=== PATIENT | female | born 1985 | race Caucasian/White ===

== ENCOUNTER → 2020-04-13 13:35 | Outpatient (CLI) | payer MEDICAID, SELFPAY ==
--- NOTE | 2020-04-13 13:35 | US_ITS ---
PROCEDURE: US OB TRANSVAGINAL CLINICAL INDICATION: for dates Early Ob ultrasound for dates COMPARISON: PTV US PELVIS-TRANSVAGINAL ONLY from 11/02/2015 FINDINGS: An intrauterine gestational sac is present with a pole with a crown-rump length of 3.12cm correlating to gestational age of 10weeks. heart tones are present with an FHR of 182bpm. Yolk sac is noted. There is an unusual fluid collection along the dorsal aspect of the spine and base of the neck of the fetus. This measures approximately 24 mm in length and 3 mm in thickness.. The linear area of echogenicity associated with this appears separate from the ununited amnion and chorion. Differential diagnosis would include cystic hygroma or encephalocele/meningocele. IMPRESSION: Live IUP at 10 weeks 0 days. An unusual fluid collection is present along the dorsal aspect of the fetus spine and base of neck. SUGGEST IMMEDIATE APPLICATION ARCHITECT ULTRASOUND EVALUATION. Estimated due date by Ultrasound is 11/09/2020 Dictated by: Sánchez Barnes MD 04/13/2020 16:07 Electronically signed by Sánchez Barnes MD in [place] 04/13/2020 16:07
== END ==
PROVIDERS: PCP Physician Assistant; Visit Provider Nurse Practitioner Obstetrics & Gynecology
DX: Z34.90 Encounter for supervision of normal pregnancy, unspecified, unspecified trimester (principal)
CPT/HCPCS: 76817

== ENCOUNTER 2020-06-26 12:03 | Outpatient (CLI) | payer MEDICAID, SELFPAY ==
[2020-06-26 12:11] VITALS: BP 118/60; PULSE 89; RESP 20; TEMP 36.7; O2SAT 100; BMI 24.3
[2020-06-26 12:51] LABS: Microscopic, Urine URINE MICROSCOPIC (MICROSCOPIC)
[2020-06-26 12:53] LABS: Appearance,Urine CLEAR (Clear); Bilirubin,Urine Negative (Negative); Blood, Urine 3+ (Negative); Color,Urine YELLOW (Yellow); Glucose,Urine (UA) Negative (Negative); Ketones,Urine Negative (Negative); Leukocyte Esterase,Urine Negative (Negative); Nitrate,Urine Negative (Negative); PH,Urine 6.5 (5.0-8.5); Protein,Urine Negative (Negative); Specific Gravity, Urine 1.015 (1.005-1.030); Urobilinogen,Urine 0.2 EU/dl (0.2)
[2020-06-26 13:06] LABS: Benzodiazepines Screen,Urine Negative ng/ml (<200)
[2020-06-26 13:07] LABS: Amphetamine/Metha Screen,Urine Negative ng/ml (<1000)
[2020-06-26 13:08] LABS: Barbiturates Screen,Urine Negative ng/ml (<200); Cannabinoid Screen,Urine Negative ng/ml (<50)
[2020-06-26 13:09] LABS: Cocaine Screen,Urine Negative ng/ml (<300); Methadone Screen,Urine Negative ng/ml (<300)
[2020-06-26 13:10] LABS: Opiate Screen,Urine Negative ng/ml (<300)
[2020-06-26 13:11] LABS: Phencyclidine Screen,Urine Negative ng/ml (<25)
[2020-06-26 13:33] LABS: Bacteria,Urine Trace /lpf; Mucus,Urine 1+ /lpf; WBC,Urine Occasional #/hpf (0-3)
[2020-06-26 13:44] LABS: Basophils % 0.2 % (0.1-2.0); Eosinophils # 0.1 K/mm3 (0.0-0.4); Eosinophils % 0.9 % (0.1-12.0); Hematocrit 34.2 % (37.0-47.0); Hemoglobin 11.8 g/dL (12.2-16.2); Lymphocytes # 1.4 K/mm3 (0.7-4.5); Lymphocytes % 13.7 % (10-50); Mean Corpuscular HGB Conc 34.6 g/dL (31.8-35.4); Mean Corpuscular Hemoglobin 31.7 pg (27.0-31.2); Mean Corpuscular Volume 91.7 fl (81-99); Mean Platelet Volume 7.8 fl (7.4-10.4); Monocytes # 0.4 K/mm3 (0.1-1.0); Monocytes % 3.6 % (1.7-9.3); Neutrophils # 8.2 K/mm3 (1.8-7.8); Neutrophils % 81.6 % (37.0-80.0); Platelet Count 264 K/mm3 (142-424); Red Blood Count 3.74 M/mm3 (4.20-5.40); Red Cell Distribution Width 14.3 % (11.5-17.5); White Blood Count 10.1 K/mm3 (4.8-10.8)
[2020-06-28 18:00] LABS: HIV Screen 4th Generation wRfx Non Reactive (Non Reactive)
[2020-06-29 09:07] LABS: Hepatitis B Surface Antigen Negative (Negative)
[2020-06-29 13:30] LABS: Rapid Plasma Reagin Ab Titer Non Reactive (NonRea<1:1)
== END 2020-06-26 13:37 | disposition home or self-care (01) ==
LOC: OBOUT 12:05 → OB 12:11
PROVIDERS: PCP Physician Assistant; Visit Provider Nurse Practitioner Obstetrics & Gynecology
DX: Z34.90 Encounter for supervision of normal pregnancy, unspecified, unspecified trimester (principal)
CPT/HCPCS: 59025; 80305; 81001; 85025; 86592; 86762; 86850; 87340

== ENCOUNTER → 2020-10-26 14:28 | Outpatient (CLI) | payer MEDICAID, SELFPAY | PROVIDERS: Visit Provider Nurse Practitioner Obstetrics & Gynecology | DX: Z34.90 Encounter for supervision of normal pregnancy, unspecified, unspecified trimester (principal); Z3A.36 36 weeks gestation of pregnancy | CPT/HCPCS: 86403 ==

== ENCOUNTER → 2020-11-02 13:22 | Outpatient (CLI) | payer MEDICAID, SELFPAY ==
[2020-11-02 13:54] LABS: Basophils % 0.3 % (0.1-2.0); Eosinophils # 0.1 K/mm3 (0.0-0.4); Eosinophils % 0.7 % (0.1-12.0); Hematocrit 37.6 % (37.0-47.0); Lymphocytes # 3.2 K/mm3 (0.7-4.5); Lymphocytes % 34.2 % (10-50); Mean Corpuscular Hemoglobin 28.8 pg (27.0-31.2); Mean Corpuscular Volume 90.1 fl (81-99); Mean Platelet Volume 7.4 fl (7.4-10.4); Monocytes # 0.4 K/mm3 (0.1-1.0); Monocytes % 4.6 % (1.7-9.3); Neutrophils # 5.7 K/mm3 (1.8-7.8); Neutrophils % 60.3 % (37.0-80.0); Platelet Count 362 K/mm3 (142-424); Red Blood Count 4.18 M/mm3 (4.20-5.40); Red Cell Distribution Width 13.7 % (11.5-17.5); White Blood Count 9.4 K/mm3 (4.8-10.8)
[2020-11-04 08:48] LABS: HIV Screen 4th Generation wRfx Non Reactive (Non Reactive)
[2020-11-04 13:47] LABS: Hepatitis B Surface Antigen Negative (Negative); Hepatitis C Antibody >11.0 s/co ratio (0.0-0.9); Rapid Plasma Reagin Ab Titer Non Reactive (NonRea<1:1); Rubella Antibodies, IgG 3.87 index (Immune >0.99)
== END ==
PROVIDERS: Visit Provider Nurse Practitioner Obstetrics & Gynecology
DX: Z34.90 Encounter for supervision of normal pregnancy, unspecified, unspecified trimester (principal)
CPT/HCPCS: 36415; 85025; 86592; 86703; 86762; 86850; 87340; 87380; G0432

== ENCOUNTER 2020-11-03 05:21 | Inpatient (IN) | payer MEDICAID, SELFPAY ==
[2020-11-03 05:32] VITALS: BMI 24.1
[2020-11-03 06:16] VITALS: BP 130/91; PULSE 72; RESP 17; TEMP 36.6; O2SAT 98; BMI 24.1
[2020-11-03 06:25] LABS: Microscopic, Urine URINE MICROSCOPIC (MICROSCOPIC)
[2020-11-03 06:37] LABS: Basophils % 0.4 % (0.1-2.0); Eosinophils # 0.1 K/mm3 (0.0-0.4); Eosinophils % 0.7 % (0.1-12.0); Lymphocytes # 3.4 K/mm3 (0.7-4.5); Lymphocytes % 33.1 % (10-50); Mean Corpuscular HGB Conc 31.4 g/dL (31.8-35.4); Mean Corpuscular Volume 89.2 fl (81-99); Mean Platelet Volume 7.2 fl (7.4-10.4); Monocytes # 0.5 K/mm3 (0.1-1.0); Monocytes % 4.9 % (1.7-9.3); Neutrophils # 6.2 K/mm3 (1.8-7.8); Platelet Count 323 K/mm3 (142-424); Red Blood Count 3.81 M/mm3 (4.20-5.40); Red Cell Distribution Width 13.2 % (11.5-17.5); White Blood Count 10.2 K/mm3 (4.8-10.8)
[2020-11-03 06:59] LABS: Hemoglobin 10.7 g/dL (12.2-16.2)
[2020-11-03 07:06] LABS: Appearance,Urine CLEAR (Clear); Blood, Urine Negative (Negative); Color,Urine YELLOW (Yellow); Glucose,Urine (UA) Negative (Negative); Ketones,Urine Negative (Negative); Leukocyte Esterase,Urine Negative (Negative); Nitrate,Urine Negative (Negative); Protein,Urine 1+ (Negative); Specific Gravity, Urine >= 1.030 (1.005-1.030)
[2020-11-03 07:21] LABS: Bilirubin,Urine 1+ (Negative)
[2020-11-03 07:23] LABS: Coronavirus 19 IgG Antibody Negative (Negative); Coronavirus 19 IgM Antibody Negative (Negative)
[2020-11-03 07:28] LABS: RBC,Urine Occasional #/hpf (0-3)
[2020-11-03 08:20] LABS: Amphetamine/Metha Screen,Urine Negative ng/ml (<1000)
[2020-11-03 08:21] LABS: Barbiturates Screen,Urine Negative ng/ml (<200); Benzodiazepines Screen,Urine Negative ng/ml (<200)
[2020-11-03 08:22] LABS: Cannabinoid Screen,Urine Negative ng/ml (<50)
[2020-11-03 08:23] LABS: Cocaine Screen,Urine Negative ng/ml (<300); Methadone Screen,Urine Negative ng/ml (<300)
[2020-11-03 08:24] LABS: Opiate Screen,Urine Negative ng/ml (<300)
[2020-11-03 08:25] LABS: Phencyclidine Screen,Urine Negative ng/ml (<25)
--- NOTE | 2020-11-03 08:29 | HMH.LABNOT ---
Labor Note - Subjective: Date: 11/03/20 Time: 08:29 regular contraction - Objective: NST:: Reactive Contractions:: every 2-3 minutes Cervical Dilation:: 2-3 Effacement:: 50% Station: -1 Membranes: artificially ruptured Comment:: Clear fluid - Fetus: Monitoring?: Yes monitoring type:: External - Assessment: Labor progressing?: Yes Cephalopelvic disproportion?: No Patient Problems: All Active Problems (Acute) URI (upper respiratory infection) (Acute) Anxiety (Chronic) Trigeminal neuralgia of left side of face (Chronic) Numerous moles (Acute) Toenail fungus (Acute) Lesion of soft tissue of lower leg and ankle (Acute) Lesion of skin of scalp (Acute) - Plan: Anesthesia for epidural?: No Continue to labor down?: Yes Plan for ?: No Continue to monitor?: Yes Start pushing?: No Comment:: I ruptured membranes and there was clear fluid. I attempted to put a clip but the angle was difficult so I did not get a clip on. Nonstress is however reactive.
[2020-11-03 08:30] VITALS: BP 136/81; PULSE 62; RESP 18; TEMP 36.8; O2SAT 100
--- NOTE | 2020-11-03 08:36 | HMH.OBAPHP ---
OB - H&P: HPI Antepartum - History of Present Illness Chief complaint: Pressure and contractions History of present illness: She is a 35-year-old 3 para 1 aborta 1 who is 39 weeks gestational age. She has been feeling some contractions and pressure and as result of that we have elected to induce her labor at term. She also takes Subutex. - History of Present Criteria for establishing EDC:: LMP confirmed by 1st trimester US care: good care Ultrasounds: normal 1st trimester US, normal mid trimester US Obstetrical complications: none Medical complications: none [facility] History I have reviewed the patient's past medical history: Yes Medical History: Reports:: Anxiety, Depression Denies:: Cancer, Diabetes Mellitus Type 1, Diabetes Mellitus Type 2, MRSA *Have you ever received a pneumonia vaccine?: No *Have you received a flu vaccine this season?: No Other Surgeries: Yes: Appendectomy, Cholecystectomy, Diagnostic Lap. No: Amputation: No Fractures: Yes - *Social History Smoking Status: Former smoker Tobacco Type: cigarettes # Packs/Day (cigarettes): 1 Alcohol Intake: never Alcohol Intake Frequency:: a few times a month Substance Use Type: former substance user, opiates, painkillers, IV drugs *Occupational Status:: unemployed Housing: house Household Members: spouse *Travel in the last 8 weeks: None - Psychiatric History Pschychiatric History:: Reports:: Anxiety, Depression Family Hx:: Diabetes, Hypertension Para: 1 Review of Systems - Review of Systems Review of systems:: pertinent systems reviewed and negative unless documented below Meds Home Medications Medication Instructions Recorded Confirmed Type buprenorphine 8 mg-naloxone 2 mg 1.5 tab SUBLINGUAL ONCE tab 04/05/20 11/03/20 History sublingual tablet promethazine 12.5 mg tablet 12.5 mg PO QID PRN #30 tab 05/03/20 11/03/20 Rx Ferrous Sulfate 325 mg PO DAILY 11/03/20 11/03/20 History Vit68/Iron/FA No6/Dha 1 cap PO DAILY 11/03/20 11/03/20 History [Prenate Enhance] Allergies Allergy/AdvReac Type Severity Reaction Status Date / Time suture Allergy Severe SWELLING Verified 11/03/20 08:08 OB - H&P: Exam - Physical Exam Vital signs: Temp Pulse Resp BP Pulse Ox 97.8 F 72 17 130/91 H 98 11/03/20 06:16 11/03/20 06:16 11/03/20 06:16 11/03/20 06:16 11/03/20 06:16 - Constitutional no acute distress - Routine HEENT Exam Head: Present: normocephalic Eye: Present: EOMI, PERRL ENT: Present: mucous membranes moist - Routine Neck Exam Present: supple, full ROM - Routine Respiratory Exam Absent: accessory muscle use (good air entry bilaterally), respiratory distress, wheezes, crackles - Routine Cardiovascular Exam Present: RRR. Absent: murmur - Routine Abdominal Exam Present: soft, normoactive bowel sounds. Absent: tenderness, distended, guarding - Routine Rectal Exam Patient deferred: visual exam, digital exam - Routine Exam Patient deferred: external exam, groin exam, perineal exam - Routine Extremities Exam Present: full ROM. Absent: cyanosis, edema - Routine Skin Exam Present: intact. Absent: cyanosis - Routine Neurological Exam Present: alert, oriented X3 - Routine Psychiatric Exam Present: normal affect OB - Results - Labs Labs: Short CBC 11/03/20 Range/Units 06:05 WBC 10.2 (4.8-10.8) K/mm3 Hgb 10.7 L D (12.2-16.2) g/dL Hct 34.0 L (37.0-47.0) % Plt Count 323 (142-424) K/mm3 Urine 11/03/20 Range/Units 06:05 Urine Color Yellow (Yellow) Urine Appearance Clear (Clear) Urine pH 6.0 (5.0-8.5) Ur Specific [place] >= 1.030 (1.005-1.030) Urine Protein 1+ (Negative) Urine Glucose (UA) Negative (Negative) OB - A/P Antepartum (1) Term delivered Status: Acute (2) complicated by subutex maintenance, antepartum Status: Acute - Additional Plan Planning to felicinao
--- NOTE | 2020-11-03 10:49 | HMH.LABNOT ---
Labor Note - Subjective: Date: 11/03/20 Time: 10:49 regular contraction - Objective: NST:: Reactive Contractions:: every 2-3 minutes Cervical Dilation:: 3-4 Effacement:: 75% Station: -1 Membranes: artificially ruptured - Fetus: Monitoring?: Yes monitoring type:: Internal Comment:: I inserted a clip and IPC - Assessment: Labor progressing?: Yes Cephalopelvic disproportion?: No Patient Problems: All Active Problems Term delivered (Acute) complicated by subutex maintenance, antepartum (Acute) (Acute) URI (upper respiratory infection) (Acute) Anxiety (Chronic) Trigeminal neuralgia of left side of face (Chronic) Numerous moles (Acute) Toenail fungus (Acute) Lesion of soft tissue of lower leg and ankle (Acute) Lesion of skin of scalp (Acute) - Plan: Anesthesia for epidural?: Yes Continue to labor down?: Yes Plan for ?: No Continue to monitor?: Yes Start pushing?: No Comment:: She is starting to progress and having regular periods. She has an epidural and she is comfortable.
[2020-11-03 12:03] VITALS: BP 130/77; PULSE 65; RESP 18; TEMP 36.7; O2SAT 100
--- NOTE | 2020-11-03 13:54 | P.PN_ITS ---
[facility] Anesthesia Checklist - Patient Identification Patient Identification: Arm Band - Structural Data Admitted From: Home Planned Operative Procedure/s: Labor epidural Consent for Planned Operative Procedure(s) Verified: Yes Verified Documents: Surgical Consent, History and Physical - NPO Status Verified Time NPO: 00:00 - Additional verifications Anesthesia Reactions: No - Airway Assessment C-Spine Mobility Assessed: Yes TMJ Mobility Assessed: Yes Dentition: Good Dentition - Neurological Assessment Level of Consciousness: Awake, Alert - Anesthesia Plan Anesthesia Risk discussed: Yes Anesthesia Plan: Verified ASA Class: II Anesthesia Type: Epidural [facility] History I have reviewed the patient's past medical history: Yes Medical History: Reports:: Anxiety, Depression Denies:: Cancer, Diabetes Mellitus Type 1, Diabetes Mellitus Type 2, MRSA *Have you ever received a pneumonia vaccine?: No *Have you received a flu vaccine this season?: No Anesthesia experience/problems:: nac Other Surgeries: Yes: Appendectomy, Cholecystectomy, Diagnostic Lap. No: C- section Amputation: No Fractures: Yes - *Social History Smoking Status: Former smoker Tobacco Type: cigarettes # Packs/Day (cigarettes): 1 Alcohol Intake: never Alcohol Intake Frequency:: a few times a month Substance Use Type: former substance user, opiates, painkillers, IV drugs *Occupational Status:: unemployed Housing: house Household Members: spouse *Travel in the last 8 weeks: None - Psychiatric History Pschychiatric History:: Reports:: Anxiety, Depression Family Hx:: Diabetes, Hypertension Para: 1
--- NOTE | 2020-11-03 14:10 | HMH.LABNOT ---
Labor Note - Subjective: Date: 11/03/20 Time: 13:40 - Objective: NST:: Reactive Contractions:: every 2-3 minutes Cervical Dilation:: 5-6 Effacement:: 90% Station: 0 Membranes: artificially ruptured - Fetus: Monitoring?: Yes monitoring type:: Internal - Assessment: Labor progressing?: Yes Cephalopelvic disproportion?: No Patient Problems: All Active Problems Term delivered (Acute) complicated by subutex maintenance, antepartum (Acute) (Acute) URI (upper respiratory infection) (Acute) Anxiety (Chronic) Trigeminal neuralgia of left side of face (Chronic) Numerous moles (Acute) Toenail fungus (Acute) Lesion of soft tissue of lower leg and ankle (Acute) Lesion of skin of scalp (Acute) - Plan: Anesthesia for epidural?: Yes Continue to labor down?: Yes Plan for ?: No Continue to monitor?: Yes Start pushing?: No Comment:: She is doing well and the cervix is now 5 6 cm. We will plan for a vaginal delivery.
[2020-11-03 15:13] LABS: Cord Blood PH 7.41 (7.35-7.45)
--- NOTE | 2020-11-03 15:42 | HMH.DN ---
- Delivery Note Delivery Date:: 11/03/20 Delivery Time:: 15:02 Anesthesia Type: Epidural Was labor medically induced?: Yes Induction method: per pitocin protocol Gestational age (weeks): 39 delivered prior to 39 weeks?: No Gender: Male at 1 minute: 9 at 5 minutes: 9 Delivery Procedure:: She was started on IV oxytocin and had her membranes ruptured. Under labor epidural she progressed to full dilation and delivered spontaneously a liveborn male child at 3:02 PM in the afternoon of November 03, 2020. On deliver the head it was noted that there was a loose nuchal cord which was easily reduced. This was followed by the anterior shoulder and the rest of the 's body atraumatically. We allowed the cord to continue to pulse for approximately 1 minute. The baby was vigorous. The nasopharynx and oropharynx were bulb suction. We then doubly clamped the cord and cut the cord. The baby was then placed on the mother's abdomen for further care. The nurses assigned Apgars of 9 at 1 minute and 9 at 5 minutes. We then obtained cord blood as well as cord pH. She has O+ blood, she is rubella immune and was group B streptococcus negative. Her estimated blood loss was approximately 250 cc. There were no perineal or vaginal lacerations. Placental Delivery Description: Spontaneous
[2020-11-03 16:06] VITALS: BP 97/60; PULSE 67; RESP 18; TEMP 36.7; O2SAT 99
[2020-11-04 08:00] VITALS: BP 122/75; PULSE 69; RESP 16; TEMP 36.8; O2SAT 97
[2020-11-04 08:43] LABS: Hematocrit 31.5 % (37.0-47.0); Hemoglobin 10.5 g/dL (12.2-16.2)
--- NOTE | 2020-11-04 08:57 | P.PN_ITS ---
Internal Medicine - PN: Subj *Date: 11/04/20 *Time: 08:57 Interval history: She is doing well this morning. She denies any pain. She is bottlefeeding. She may attempt breast-feeding. She has had breast augmentation in the past. We will start her Subutex back again today. Exam Vital signs and Labs for Last 24 Hours: Temp Pulse Resp BP Pulse Ox 98.1 F 67 18 97/60 L 99 11/03/20 16:06 11/03/20 16:06 11/03/20 16:06 11/03/20 16:06 11/03/20 16:06 Laboratory Results - last 24 hr 11/03/20 15:10: Cord ABG pH 7.41 11/04/20 08:14: Hgb 10.5 L, Hct 31.5 L I & O for Last 24 hours: Intake & Output 11/01/20 11/02/20 11/03/20 11/04/20 11:59 11:59 11:59 11:59 Weight 145 lb - Constitutional no acute distress - *Routine HEENT Exam Head: Present: normocephalic Eye: Present: EOMI, PERRL ENT: Present: mucous membranes moist Assessment and Plan (1) Term delivered Status: Acute Category: Medical Code(s): O80 - Encounter for full-term uncomplicated delivery (2) complicated by subutex maintenance, antepartum Status: Acute Category: Medical Code(s): O99.320 - Drug use complicating , unspecified trimester; F11.20 - Opioid dependence, uncomplicated - Assessment and plan all Dx Assessment and Plan for all problems:: She is doing well this morning. She will be discharged home tomorrow. I will be leaving [facility] and Dr. Lopez will assume care and discharge her tomorrow. She will follow up with me in a couple of weeks.
--- NOTE | 2020-11-04 11:21 | SW/DCPLANNER ---
Addendum entered by Sujata Watson 11/04/20 14:29: This case did NOT meet criteria per Central Intake. Original Note: I have received referral regarding: pt on suboxone, positive for oxycodone, drug history and limited care. Patient tested positive positive for Suboxone on: 04/05/20, 05/03/20, 06/29/20, 07/27/20, 10/26/20 and 11/02/20. Patient was also positive for Oxycodone on 05/03/20. Patient denied Oxycodone use and pharmacy stated this was NOT listed in patients kai report. Patient is active with [email or web address] in [place] and has been for nine months. Patient delivered male (Levi Santana) on 11/03/20. Infants father was present at time of my visit: Storm Santana 03/25/90. Patient, infant and patients grandmother (Dorothy Cuenca) will reside at [address] [place] [address] in [place] [address]. Patients contact number is: [phone]. Patient does have one other child that is 10 year old female that does reside with her father real time analyst. Patient has not had any past Social Service involvement. Patient will be established with [facility] at time of discharge. Patient stated that she has these items at home: crib, carseat, clothing, diapers and will be bottle feeding. Nursing staff (Teri) has stated that patient and infants father are both appropriate with infant. Patient stated that she is enrolled with [email or web address], has been in [facility]: December 2019, patient was at [employer] [facility] in [place] from January-March [address] March 2020. Patient denies oxycodone use. I have reported this information to Central Intake: ID# [id number]. I will follow up with ID# and nursing this afternoon.
[2020-11-04 12:00] VITALS: BP 97/54; PULSE 64; RESP 16; TEMP 36.5; O2SAT 97
[2020-11-04 16:00] VITALS: BP 128/68; PULSE 65; RESP 18; TEMP 36.6; O2SAT 97
[2020-11-05 08:00] VITALS: BP 109/56; PULSE 69; RESP 18; TEMP 36.7; O2SAT 97
[2020-11-05 12:00] VITALS: BP 107/65; PULSE 71; RESP 18; TEMP 36.7; O2SAT 99
--- NOTE | 2020-11-05 13:30 | HMH.DCSUM ---
General - General Admission date:: 11/03/20 Discharge date: 11/05/20 Hospital Course Hospital Course: uncomplicated vaginal delivery course uneventful mother discharged on ppd #2, but infant will remain admitted for observation due to withdrawal symptoms mother is discharged home in stable condition with regular diet she will continue subutex per outside management Objective Vital signs: Temp Pulse Resp BP Pulse Ox 98.1 F 71 18 107/65 L 99 11/05/20 12:00 11/05/20 12:00 11/05/20 12:00 11/05/20 12:00 11/05/20 12:00 Narrative: CONSTITUTIONAL: no acute distress HEENT: mucous membranes moist PULMONARY: breathing unlabored without audible wheezes CV: no tachycardia or visible JVD; normal LE peripheral pulses ABD: soft, NT/ND, no guarding : fundus firm at/below umbilicus SKIN: no visible rash or lesions EXT: 1+ edema LEs NEURO: alert/oriented, no altered mental status PSYCH: appropriate mood and demeanor without visible anxiety/depression DS: Diagnosis - Discharge Diagnosis (1) Term delivered Status: Acute (2) complicated by subutex maintenance, antepartum Status: Acute Discharge Plan - Patient Discharge Instructions ACTIVITY: Continue current activity Additional Instructions: REST. DRINK PLENTY OF FLUIDS. NO HEAVY LIFTING. NOTHING INSIDE THE VAGINA FOR 6 WEEKS. Patient Instructions: Depression, Hemorrhage, DI for Labor and Delivery, Vaginal , DI for Pre-eclampsia, [facility] Post Discharge Instructions - Follow up Plan Follow up with: Nabil Kaufman MD [Staff Physician] - 11/19/20 9:15 am Disposition: Home, Self-Detention Medications: Home Medications Medication Instructions Recorded Confirmed Type buprenorphine 8 mg-naloxone 2 mg 1.5 tab SUBLINGUAL DAILY tab 04/05/20 11/03/20 History sublingual tablet promethazine 12.5 mg tablet 12.5 mg PO QID PRN #30 tab 05/03/20 11/03/20 Rx Ferrous Sulfate 325 mg PO DAILY 11/03/20 11/03/20 History Vit68/Iron/FA No6/Dha 1 cap PO DAILY 11/03/20 11/03/20 History [Prenate Enhance] Prescriptions/Medication Reconciliation: New Ibuprofen [Motrin 400mg tablet] 800 mg PO Q6HP PRN tablet PRN Reason: Mild To Moderate Pain Acetaminophen [Acetaminophen 325mg tab] 650 mg PO Q4HP PRN tablet PRN Reason: Mild Pain Continued promethazine 12.5 mg tablet 12.5 mg PO QID PRN #30 tab PRN Reason: nausea and vomiting buprenorphine 8 mg-naloxone 2 mg sublingual tablet 1.5 tab SUBLINGUAL DAILY tab Ferrous Sulfate 325 mg PO DAILY Vit68/Iron/FA No6/Dha [Prenate Enhance] 1 cap PO DAILY - Problem Reconciliation Problems Reviewed?: Yes
[2020-11-08 11:23] LABS: Buprenorphine, Urine Positive (Cutoff=10)
== END 2020-11-05 16:15 | disposition home or self-care (01) | DRG 807 ==
PROVIDERS: Admitting Provider Nurse Practitioner Obstetrics & Gynecology; PCP Physician Assistant; Visit Provider Nurse Practitioner Obstetrics & Gynecology
DX: O69.81X0 Labor and delivery complicated by cord around neck, without compression, not applicable or unspecified (principal); Z37.0 Single live birth; Z3A.39 39 weeks gestation of pregnancy; O99.320 Drug use complicating pregnancy, unspecified trimester; F11.21 Opioid dependence, in remission
CPT/HCPCS: 59409; 36415; 59025; 80305; 80307; 81001; 82800; 85014; 85018; 85025; 86328; 86592; 86703; 86762; 86850; 87340; 87380; 94761; C1758; G0283; G0432; J0574; J2405

== ENCOUNTER → 2022-05-04 16:33 | Outpatient (CLI) | payer MEDICAID, SELFPAY ==
[2022-05-04 15:00] LABS: Alanine Aminotransferase 17 U/L (12-78); Albumin Level 3.8 g/dl (3.5-5.0); Albumin/Globulin Ratio 1.3 (1.1-1.8); Alkaline Phosphatase 87 U/L (38-126); Anion Gap 9.9 mEq/L (5-15); Aspartate Amino Transferase 26 U/L (14-36); Blood Urea Nitrogen 9 mg/dl (7-17); Calcium 9.1 mg/dl (8.4-10.2); Carbon Dioxide 26 mmol/L (22.0-30.0); Chloride 104 mmol/L (98-107); Cholesterol 180 mg/dl (140-200); Estimated Glomerular Filt Rate 140 ml/min (>60); GFR (African American) 170 ML/MIN (>60); Globulin 2.9 g/dL (1.3-3.2); Glucose 104 mg/dl (74-100); HDL Cholesterol 45 mg/dl (40-60); Potassium 3.9 mmoL/L (3.5-5.1); Sodium 136 mmol/L (136-145); Total Protein,Serum 6.7 g/dl (6.3-8.2); Triglycerides 114 mg/dl (30-150); VLDL Cholesterol 23 mg/dL (0-40)
[2022-05-04 15:01] LABS: Basophils # 0.1 K/mm3 (0-0.2); Basophils % 0.7 % (0.1-2.0); Eosinophils # 0.3 K/mm3 (0.0-0.4); Hematocrit 38.9 % (37.0-47.0); Hemoglobin 12.4 g/dL (12.2-16.2); Lymphocytes # 2.7 K/mm3 (0.7-4.5); Lymphocytes % 30.5 % (10-50); Mean Corpuscular HGB Conc 31.8 g/dL (31.8-35.4); Mean Corpuscular Hemoglobin 29.9 pg (27.0-31.2); Mean Corpuscular Volume 94.2 fl (81-99); Monocytes # 0.7 K/mm3 (0.1-1.0); Monocytes % 7.4 % (1.7-9.3); Neutrophils # 5.2 K/mm3 (1.8-7.8); Neutrophils % 58.4 % (37.0-80.0); Platelet Count 371 K/mm3 (142-424); Red Blood Count 4.13 M/mm3 (4.20-5.40); Red Cell Distribution Width 13.8 % (11.5-17.5); White Blood Count 8.9 K/mm3 (4.8-10.8)
[2022-05-04 15:05] LABS: Bilirubin,Total < 0.1 mg/dl (0.2-1.3)
[2022-05-04 15:11] LABS: Direct LDL Cholesterol 98.07 mg/dL (100-129)
[2022-05-04 15:16] LABS: 25-OH Vitamin D, Total 38.6 ng/mL (30-100)
[2022-05-04 15:27] LABS: HCG,Quantitative < 2 mIU/ml (0-5.42)
[2022-05-04 15:31] LABS: Thyroid Stimulating Hormone 1.38 uIU/mL (0.465-4.68)
[2022-05-06 15:21] LABS: Tissue Transglutaminase IgA Ab <2 U/mL (0-3); Tissue Transglutaminase IgG Ab 23 U/mL (0-5)
== END ==
PROVIDERS: Visit Provider Physician Assistant
DX: R10.9 Unspecified abdominal pain (principal); R53.83 Other fatigue; G50.0 Trigeminal neuralgia; K59.00 Constipation, unspecified
CPT/HCPCS: 80053; 80061; 82306; 83516; 84443; 84702; 85025

== ENCOUNTER → 2022-05-15 13:58 | Outpatient (CLI) | payer MEDICAID, SELFPAY ==
[2022-05-15 15:04] VITALS: BMI 25.0
== END ==
PROVIDERS: PCP Physician Assistant; Visit Provider Physician Assistant
DX: Z71.3 Dietary counseling and surveillance (principal); K90.0 Celiac disease
CPT/HCPCS: 97802

== ENCOUNTER 2023-10-31 22:14 | Outpatient (CLI) | payer MEDICAID, SELFPAY ==
[2023-10-31 23:07] LABS: Amphetamine/Metha Screen,Urine Negative ng/ml (<1000); Barbiturates Screen,Urine Negative ng/ml (<200); Benzodiazepines Screen,Urine Negative ng/ml (<200); Cannabinoid Screen,Urine Negative ng/ml (<50); Cocaine Screen,Urine Negative ng/ml (<300); Methadone Screen,Urine Negative ng/ml (<300); Opiate Screen,Urine Negative ng/ml (<300); Phencyclidine Screen,Urine Negative ng/ml (<25)
== END 2023-10-31 23:59 ==
LOC: LAB.DROPOF 22:15
PROVIDERS: PCP Physician Assistant; Visit Provider Physician Assistant
DX: G50.0 Trigeminal neuralgia (principal); Z79.899 Other long term (current) drug therapy
CPT/HCPCS: 80307